=== PATIENT | female | born 2000 | race Caucasian/White ===

== ENCOUNTER 2025-04-17 08:02 | Emergency (ER) | payer SELFPAY ==
[~2025-04-17] VITALS: Ht 170.2 cm; Wt 89.0 kg
[2025-04-17 08:05] VITALS: O2SAT 100
[2025-04-17 08:32] LABS: BASOPHILS % 0.4 % (0.0-2.0); EOSINOPHILS % 0.3 % (0.0-5.0); HEMATOCRIT. 37.3 % (36.0-48.0); HEMOGLOBIN. 12.3 g/dL (12.0-16.0); LYMPHOCYTES % 21.6 % (20.0-50.0); MEAN PLATELET VOLUME 7.6 fl (7.4-10.4); MONOCYTES % 6.8 % (2.0-8.0); NEUTROPHILS % 70.9 % (40.0-76.0); PLATELET 274 x1000/uL (130-400); RED BLOOD CELL COUNT 4.15 mill/uL (4.2-5.4); RED CELL DISTRIBUTION WIDTH 14.1 % (11.6-14.6)
[2025-04-17 08:41] LABS: CLARITY URINE TURBID (CLEAR); COLOR URINE YELLOW (YELLOW); GLUCOSE URINE NEGATIVE (NEGATIVE); KETONES URINE TRACE (NEGATIVE); LEUKOCYTE ESTERASE URINE 1+ (NEGATIVE); NITRITE URINE NEGATIVE (NEGATIVE); OCCULT BLOOD URINE NEGATIVE (NEGATIVE); PH URINE 8.5 (4.5-8.0); PROTEIN URINE TRACE (NEGATIVE); SPECIFIC GRAVITY URINE 1.024 (1.005-1.030); UROBILINOGEN URINE 1.0 E.U./dL (0.2-1.0)
[2025-04-17 08:44] LABS: CREATININE 0.6 mg/dL (0.6-1.0)
[2025-04-17 08:45] LABS: UREA NITROGEN BLOOD 10 mg/dL (9-23)
[2025-04-17 08:54] LABS: HCG SCREEN POSITIVE
[2025-04-17] MEDS: SODIUM CHLORIDE 0.9% 1,000 ML IV ONE (08:58)
[2025-04-17] MEDS: ONDANSETRON HCL 4MG/2ML INJ IV ONE (08:58)
[2025-04-17 09:06] LABS: SQUAMOUS EPITHELIAL CELL URINE 3+ /lpf (RARE/1+)
[2025-04-17 09:07] LABS: BACTERIA URINE 4+; MUCUS URINE 3+ /lpf (< = 2+)
[2025-04-17 09:08] LABS: RBC URINE NONE SEEN /hpf (0-2); WBC URINE 0-2 /hpf (0-2)
[2025-04-17] MEDS ORDERED: ONDA-239 PO (09:54)
[2025-04-17 10:18] VITALS: BP 117/58; PULSE 82; RESP 15; TEMP 37; O2SAT 100
== END 2025-04-17 10:18 | disposition home or self-care (01) ==
LOC: ER 08:02
DX: O21.9 Vomiting of pregnancy, unspecified (principal); Z3A.08 8 weeks gestation of pregnancy
CPT/HCPCS: 99283; 96374; 96361; 80048; 81003; 81025; 84703; 85025; 36415; J2405; J7030